=== PATIENT | female | born 1950 | race Two or more races ===

== ENCOUNTER 2020-03-19 08:09 | Outpatient (CLI) | payer OTHER | END 2020-03-19 08:22 | disposition home or self-care (01) | LOC: TOM 08:09 | PROVIDERS: ATTEND Internal Medicine Gastroenterology | DX: K57.90 Diverticulosis of intestine, part unspecified, without perforation or abscess without bleeding (principal); R19.5 Other fecal abnormalities; Z79.01 Long term (current) use of anticoagulants ==

== ENCOUNTER 2020-03-27 07:46 | Outpatient (CLI) | payer OTHER | END 2020-03-27 08:00 | disposition home or self-care (01) | LOC: RX STUDY 07:46 | PROVIDERS: ATTEND Internal Medicine Gastroenterology | DX: R13.19 Other dysphagia (principal) ==